=== PATIENT | female | born 1955 | race Caucasian/White ===

== ENCOUNTER 2024-07-23 18:18 | Emergency (ER) | payer MEDICARE ==
[~2024-07-23 18:18] MED LIST: Iopamidol-370 76% 500 ML MDV (1 ML CHARGE) ONE
[2024-07-23] MEDS ORDERED: Acetaminophen 500 MG TAB ONE (18:35)
[2024-07-23] MEDS ORDERED: Sodium Chloride 0.9% 100 ML ONE (18:35)
[2024-07-23] MEDS ORDERED: Cefepime 2 GM VIAL ONE (18:35)
[2024-07-23 19:08] LABS: #Basophils 0.04 10x3/uL (0.0-0.2); #Eosinophils Less than 0.03 10x3/uL (0.0-0.7); %Basophils 0.2 % (0.0-1.0); %Lymphocytes 3.1 % (21.0-51.0); %Monocytes 6.2 % (0.0-10.0); %Neutrophils 86.5 % (42.0-75.0); Hemoglobin 9.9 g/dL (12.0-16.0); Mean Corpuscular HGB CONC 31.9 g/dL (32.0-36.0); Mean Corpuscular Hemoglobin 30.5 pg (27.0-31.0); Mean Corpuscular Volume 95.4 fL (78.0-98.0); Mean Platelet Volume 9.8 fL (7.4-10.4); Platelet Count 158 10x3/uL (130-400); RBC Distribution Width 18.6 % (11.5-14.5); Red Blood Cell (RBC) Count 3.25 mill/uL (4.20-5.40)
[2024-07-23 19:32] LABS: ALT (SGPT) 25 U/L (8-55); AST (SGOT) 41 U/L (5-34); Albumin 2.1 g/dL (3.4-4.8); Alkaline Phosphatase 71 U/L (40-110); Anion Gap 16 mmol/L (10-20); BUN (Urea Nitrogen) 28 mg/dL (9.8-20.1); Bilirubin, Total 2.7 mg/dL (0.2-1.2); Calc. Creatinine Clearance 0 mL/min (70-130); Calcium 8.5 mg/dL (7.8-10.44); Carbon Dioxide 23 mmol/L (23-31); Chloride 104 mmol/L (98-107); Estimated GFR 33; Globulin 3.1 g/dL (2.4-3.5); Glucose 114 mg/dL (80-115); Lipase 14 U/L (8-78); Potassium 3.9 mmol/L (3.5-5.1); Protein, Total 5.2 g/dL (5.8-8.1); Sodium 139 mmol/L (136-145)
[2024-07-23] MEDS ORDERED: metroNIDAZOLE 500 MG (100 mL) BAG ONE (19:41)
[2024-07-23] MEDS ORDERED: Vancomycin (BATCH) 2 GM in Premix 1 BAG IVPB SCH (20:30)
[2024-07-23] MEDS ORDERED: Midodrine HCl 5 MG TAB PO SCH (21:30)
[2024-07-23 21:40] LABS: Bacteria/HPF None Seen HPF (None Seen); Bilirubin Negative (Negative); Blood, Urine Negative (Negative); CAUTI Indications for Culture Alt mental st,lethar; Clarity Turbid (Clear); Glucose, Urine (Dipstick) Normal (Negative); Ketone, Urine Negative (Negative); Leukocyte 250 Leu/uL (Negative); Nitrite Negative (Negative); Protein, Urine (Dipstick) 30 mg/dL (Neg-Trace); RBC/HPF 0-3 HPF (0-3); Specific Gravity, Urine 1.026 (1.002-1.036); Squamous Epithelial 0-3 HPF (0-3); Urobilinogen Normal mg/dL (Less than 2); WBC/HPF 21-50 HPF (0-3)
[2024-07-23 21:42] LABS: Urine Culture Reflex Yes Yes
[2024-07-23] MEDS ORDERED: NOREPINEPHRINE 8 MG/250 ML-D5W 250 ML ONE (22:45)
== END 2024-07-24 02:06 | disposition short-term general hospital (02) ==
LOC: ERS 18:18
DX: A41.9 Sepsis, unspecified organism (principal); R65.21 Severe sepsis with septic shock; I12.9 Hypertensive chronic kidney disease with stage 1 through stage 4 chronic kidney disease, or unspecified chronic kidney disease; E11.22 Type 2 diabetes mellitus with diabetic chronic kidney disease; N18.4 Chronic kidney disease, stage 4 (severe); Z55.6 Problems related to health literacy
CPT/HCPCS: 70450; 71045; 74177; 80053; 81001; 83605; 83690; 85025; 87040; 87077; 87086; 93005; J0692; J3370; Q9967; 36415; 36556; 51701; 96365; 96366; 96367

== ENCOUNTER 2024-08-23 13:50 | Outpatient (CLI) | payer MEDICARE | END 2024-08-23 13:51 | disposition home or self-care (01) | LOC: RAD 13:50 | PROVIDERS: ATTEND Student in an Organized Health Care Education/Training Program | DX: J90 Pleural effusion, not elsewhere classified (principal); R91.8 Other nonspecific abnormal finding of lung field; Z95.828 Presence of other vascular implants and grafts | CPT/HCPCS: 71046 ==